=== PATIENT | female | born 2000 | race Caucasian/White ===

== ENCOUNTER 2021-09-22 23:32 | Inpatient (IN) | payer OTHER ==
[~2021-09-22] VITALS: Ht 172.7 cm; Wt 99.8 kg
[2021-09-23 00:29] LABS: CHLORIDE 108 mEq/L (98-107)
[2021-09-23 00:37] LABS: ETHANOL BLOOD < 10 mg/dL
[2021-09-23 00:49] LABS: HCG SCREEN NEGATIVE
[2021-09-23] MEDS ORDERED: IOHEXOL-350 100 ML BOTTLE ONE (00:50)
[2021-09-23 01:13] LABS: BASOPHILS % 0.6 % (0.0-2.0); EOSINOPHILS % 1.5 % (0.0-5.0); HEMOGLOBIN. 12.8 g/dL (12.0-16.0); LYMPHOCYTES % 18.6 % (20.0-50.0); MEAN CORPUSCULAR HEMOGLOBIN 28.1 pg (28.0-32.0); MEAN CORPUSCULAR VOLUME 85.6 fL (81.0-99.0); MEAN PLATELET VOLUME 7.5 fl (7.4-10.4); NEUTROPHILS % 71.3 % (40.0-76.0); PLATELET 300 x1000/uL (130-400); RED BLOOD CELL COUNT 4.55 mill/uL (4.2-5.4); RED CELL DISTRIBUTION WIDTH 15.4 % (11.6-14.6)
[2021-09-23 01:46] LABS: CLARITY URINE CLEAR (CLEAR); COLOR URINE YELLOW (YELLOW); KETONES URINE NEGATIVE (NEGATIVE); LEUKOCYTE ESTERASE URINE NEGATIVE (NEGATIVE); NITRITE URINE NEGATIVE (NEGATIVE); OCCULT BLOOD URINE NEGATIVE (NEGATIVE); PH URINE 7.5 (4.5-8.0); PROTEIN URINE NEGATIVE (NEGATIVE); UROBILINOGEN URINE 0.2 E.U./dL (0.2-1.0)
[2021-09-23 02:05] LABS: *AMPHETAMINES SCREEN URINE NEGATIVE (NEGATIVE); *BARBITURATES SCREEN URINE NEGATIVE (NEGATIVE); *BENZODIAZEPINES SCREEN URINE NEGATIVE (NEGATIVE); *COCAINE SCREEN URINE NEGATIVE (NEGATIVE); CANNABINOID URINE SCREEN NEGATIVE (NEGATIVE); METHADONE URINE SCREEN NEGATIVE (NEGATIVE); OPIATES URINE SCREEN NEGATIVE (NEGATIVE); PHENCYCLIDINE URINE SCREEN NEGATIVE (NEGATIVE)
[2021-09-23] MEDS ORDERED: SODIUM CHLORIDE 0.9% 1,000 ML IV ONE ×2 (02:45→04:15)
[2021-09-23] MEDS ORDERED: MIDAZOLAM HCL 2 MG/2 ML VIAL ONE (04:09)
[2021-09-23] MEDS ORDERED: MIDAZOLAM HCL 2 MG/2 ML VIAL IV ONE (04:15)
[2021-09-23] MEDS ORDERED: LEVETIRACETAM 1000MG PREMIX 100 ML IV ONE (04:15)
[2021-09-23 10:30] VITALS: BP 94/55
[2021-09-23] MEDS ORDERED: HYDROCODONE/ACETAMINOPHEN 5/325MG TABLET PO PRN (11:00)
[2021-09-23] MEDS ORDERED: DOCUSATE SODIUM 100MG CAPSULE PO PRN (11:00)
[2021-09-23] MEDS ORDERED: IPRATROPIUM/ALBUTEROL 0.5-3(2.5)MG/3ML NEB HHN PRN (11:00)
[2021-09-23] MEDS ORDERED: ACETAMINOPHEN 325MG TABLET PO PRN ×2 (11:00)
[2021-09-23] MEDS ORDERED: CLONIDINE 0.1MG TABLET PO PRN (11:00)
[2021-09-23] MEDS ORDERED: ONDANSETRON HCL 4MG/2ML INJ IV PRN (11:00)
[2021-09-23] MEDS ORDERED: LORAZEPAM 0.5MG TABLET PO PRN (11:00)
[2021-09-23] MEDS ORDERED: NALOXONE HCL 0.4MG/ML VIAL IV PRN (11:15)
[2021-09-23 12:00] VITALS: BP 94/55
[2021-09-23 16:00] VITALS: BP 103/46
[2021-09-23 20:00] VITALS: BP_SYST 102; BP_SYST 159; BP_DIAS 58
[2021-09-23] MEDS: LEVETIRACETAM 500MG TABLET PO SCH (21:25)
[2021-09-24] VITALS (7 sets, daily range): BP systolic 92–118; BP diastolic 44–61
[2021-09-24 06:47] LABS: BASOPHILS % 0.7 % (0.0-2.0); HEMOGLOBIN. 11.8 g/dL (12.0-16.0); LYMPHOCYTES % 28.4 % (20.0-50.0); MEAN CORPUSCULAR HEMOGLOBIN 28.7 pg (28.0-32.0); MEAN CORPUSCULAR VOLUME 85.2 fL (81.0-99.0); MEAN PLATELET VOLUME 7.7 fl (7.4-10.4); MONOCYTES % 7.8 % (2.0-8.0); NEUTROPHILS % 61.1 % (40.0-76.0); PLATELET 276 x1000/uL (130-400); RED CELL DISTRIBUTION WIDTH 15.9 % (11.6-14.6)
[2021-09-24 07:05] LABS: CHLORIDE 108 mEq/L (98-107)
[2021-09-24] MEDS: LEVETIRACETAM 500MG TABLET PO SCH (08:48)
[2021-09-24] MEDS ORDERED: KEPP500 MT ×3 (17:39→19:07)
== END 2021-09-24 19:08 | disposition home or self-care (01) | DRG 101 ==
LOC: ER 23:32 → 8WST 09-23 03:21 → ENRESERV 09-23 07:22
PROVIDERS: ADMIT Internal Medicine; ATTEND Internal Medicine
DX: R56.9 Unspecified convulsions (principal); N94.89 Other specified conditions associated with female genital organs and menstrual cycle; Z20.822 Contact with and (suspected) exposure to COVID-19; R53.1 Weakness; R63.5 Abnormal weight gain; Z68.33 Body mass index [BMI] 33.0-33.9, adult
CPT/HCPCS: 36415; 70496; 70498; 70551; 71045; 80048; 80053; 80305; 80320; 81003; 82962; 84484; 84703; 85025; 87426; 93005; 99291; J1953; J2250; J7030; Q9967; G0480